=== PATIENT | male | born 1995 | race Caucasian/White ===

== ENCOUNTER 2017-11-13 10:01 | Outpatient (CLI) ==
--- NOTE | 2017-11-13 11:20 | DI ---
EXAM: Three views of the right foot. History: Right foot pain. Findings: No acute fracture or dislocation. No abnormal calcifications or radiopaque foreign bodies . Joint spaces are relatively preserved. Impression: No acute osseous abnormality.
== END 2017-11-13 10:02 | disposition home or self-care (01) ==
LOC: RAD 10:01
PROVIDERS: ATTEND Nurse Practitioner Family
DX: M79.671 Pain in right foot (principal)